=== PATIENT | female | born 1990 | race Two or more races ===

== ENCOUNTER 2016-02-29 00:21 | Inpatient (IN) | payer OTHER ==
[~2016-02-29] VITALS: Ht 167.6 cm; Wt 62.7 kg
[2016-02-29] VITALS (11 sets, daily range): BP systolic 101–131; BP diastolic 55–95
[~2016-02-29 00:21] MED LIST: AMOXICILLIN500 MG PO; AMOXICILLIN875 MG PO; BENADRYL25 MG PO; CITALOPRAM HBR20 MG; CLEOCIN300 MG PO; CLINDAMYCIN HC300 MG PO; DOXEPIN HCL25 MG; Depo-Provera IM; ENDOCET 5-3251 EACH PO; HYDROCODON-ACE1 EAC7 PO; IBUPROFEN800 MG PO; LAMOTRIGINE100 MG; LORTAB 5-325 M1 EACH PO; MOTRIN600 MG PO; MOTRIN800 MG PO; Motrin PO; NAPROSYN500 MG PO; NOHOMEMEDS; NORCO 5/3251 TABLET PO; PEN-VEE K,VEET500 MG PO; PERCOCET 5/31 TABLET PO; PREDNISONE10 MG PO; SUBUTEX8 MG SL; TYLENOL WITH C1 EACH PO; TYLENOL325 M1 PO; ULTRAM50 MG PO
[2016-02-29] MEDS ORDERED: subutex PO (01:33)
[2016-02-29 01:41] LABS: BASOPHIL COUNT 0.1 K/uL (0-0.1); EOSINOPHIL (%) 0.4 % (0-5); EOSINOPHIL COUNT 0.1 K/uL (0-0.3); HEMATOCRIT 31.4 % (36.0-46.0); IMMATURE GRANULOCYTE (%) 0.4 % (0.0-0.7); IMMATURE GRANULOCYTE COUNT 0.7 K/uL; LYMPHOCYTE COUNT 3.1 K/uL (1.0-2.8); MCH 30.7 PG (29.0-34.0); MCV 87.7 FL (83-99); MEAN PLAT.VOLUME 9.4 uM^3 (9.5-12.4); MONOCYTE (%) 6.4 % (3-12); MONOCYTE COUNT 1.2 K/uL (0-0.8); NEUTROPHIL (%) 76.1 % (45-76); NEUTROPHIL COUNT 14.5 K/uL (1.8-6.4); PLATELET COUNT 292 K/uL (156-360); RBC DIS.WIDTH-CV 12.6 % (11.8-14.6); RED BLOOD COUNT 3.58 M/uL (3.80-5.20)
[2016-02-29 02:45] LABS: METH RESISTANT S AUREUS PCR NEGATIVE (NEGATIVE)
[2016-02-29 02:46] LABS: PROBE CHECK PASS; SPECIMEN PROCESSING CONTROL PASS
[2016-02-29 02:47] LABS: DRSB INTERNAL CONTROL PASS; PROBE CHECK PASS; SPECIMEN PROCESSING CONTROL PASS
[2016-02-29 03:18] LABS: AMPHETAMINES QUANT VALUE 0 NG/ML; BARBITUATES QUANT VALUE 0 NG/ML; BENZODIAZEPINES QUANT VALUE 0 NG/ML; BENZODIAZEPINES, URINE SCREEN Negative (200 ng/mL); MARIJUANA QUANT VALUE 0 NG/ML; OPIATES QUANTITATIVE VALUE 0 NG/ML; PHENCYCLIDINE QUANT VALUE 0 NG/ML
[2016-03-01 05:50] LABS: EOSINOPHIL (%) 1.3 % (0-5); EOSINOPHIL COUNT 0.2 K/uL (0-0.3); HEMATOCRIT 25.3 % (36.0-46.0); IMMATURE GRANULOCYTE (%) 0.4 % (0.0-0.7); IMMATURE GRANULOCYTE COUNT 0.1 K/uL; LYMPHOCYTE COUNT 3.9 K/uL (1.0-2.8); MCH 30.5 PG (29.0-34.0); MCHC 33.6 G/DL (30.0-36.0); MCV 90.7 FL (83-99); MONOCYTE (%) 7.1 % (3-12); MONOCYTE COUNT 0.9 K/uL (0-0.8); NEUTROPHIL (%) 60.8 % (45-76); NEUTROPHIL COUNT 7.9 K/uL (1.8-6.4); RBC DIS.WIDTH-CV 13.1 % (11.8-14.6); RBC DIS.WIDTH-SD 43.3 % (39-53); RED BLOOD COUNT 2.79 M/uL (3.80-5.20)
[2016-03-01 06:49] LABS: MEAN PLAT.VOLUME 9.5 uM^3 (9.5-12.4); PLAT.SUFFICIENCY ADEQUATE; USER ID SDF
[2016-03-01 06:51] LABS: PLATELET COUNT 195 K/uL (156-360)
[2016-03-01 07:11] VITALS: BP 102/56
[2016-03-01] MEDS ORDERED: IBUPROFEN800 MG PO (10:19)
[2016-03-01 23:16] VITALS: BP 114/56
[2016-03-02 07:35] VITALS: BP 125/59
[2016-03-02] MEDS ORDERED: FERROUS SULFAT325 MG PO (09:38)
[2016-03-02 13:55] VITALS: BP 138/83
== END 2016-03-02 23:00 | disposition home or self-care (01) | DRG 775 ==
LOC: LDRP-OP 00:21 → 2WEST 00:22
PROVIDERS: Nurse Practitioner
DX: O60.14X0 Preterm labor third trimester with preterm delivery third trimester, not applicable or unspecified (principal); O99.02 Anemia complicating childbirth; D64.9 Anemia, unspecified; O99.324 Drug use complicating childbirth; F11.20 Opioid dependence, uncomplicated; F12.10 Cannabis abuse, uncomplicated; F13.10 Sedative, hypnotic or anxiolytic abuse, uncomplicated; O99.334 Smoking (tobacco) complicating childbirth; F17.200 Nicotine dependence, unspecified, uncomplicated; Z37.0 Single live birth; Z3A.36 36 weeks gestation of pregnancy
CPT/HCPCS: 85025; 87081; 87641; 87653; J0571; J1050; J2540; J7120

== ENCOUNTER 2016-10-04 01:13 | Emergency (ER) | payer OTHER ==
[~2016-10-04] VITALS: Ht 167.6 cm; Wt 63.5 kg
[~2016-10-04 01:13] MED LIST changes: +FERROUS SULFAT325 MG PO; +subutex PO
[2016-10-04 03:15] VITALS: BP 117/87
== END 2016-10-04 03:15 ==
LOC: EME → EDBD 01:13 → EME 03:15
PROC: 3E0234Z Introduction of Serum, Toxoid and Vaccine into Muscle, Percutaneous Approach (ICD-10-PCS; principal; 2016-10-04)
PROC: 0HQ1XZZ Repair Face Skin, External Approach (ICD-10-PCS; principal; 2016-10-04)
DX: S01.81XA Laceration without foreign body of other part of head, initial encounter (principal); F10.10 Alcohol abuse, uncomplicated; Y09 Assault by unspecified means; Z23 Encounter for immunization; F17.200 Nicotine dependence, unspecified, uncomplicated
CPT/HCPCS: 70450; 70486; 99281; 99285